=== PATIENT | male | born 1945 | race Caucasian/White ===

== ENCOUNTER 2021-10-15 15:01 | Inpatient (IN) | payer OTHER ==
[~2021-10-15] VITALS: Ht 182.9 cm; Wt 90.2 kg
[~2021-10-15 15:01] MED LIST: ALLO300 PO; AMLO10 PO; ATOR10 PO; Antivert25 MG PO; BASAGLAR K100 UNIT/1 SC; CIPR500 PO; CLIN150 PO; DULO60 PO; FLUO20 PO; HYDACE10B PO; INSN100I SUBQ; INSR10I SUBQ; LAMI150 PO; LEVFLO500 PO; LOSARTAN POTAS100 M1 PO; METO25ER PO; NOVOLOG FL100 UNIT/3 SC; OMEP20ER PO; PIRO20 PO; Percocet 5-3251 EACH PO; SIMV40 PO; Terazosin HCl10 MG PO; VISBIOME PROBIOTIC PO; Zofran8 MG PO
[2021-10-15 15:35] LABS: BASOPHILS ABSOLUTE AUTO 0.04 K/mm3 (0.00-0.23); BASOPHILS PERCENT AUTO 0 % (0-2); EOSINOPHILS ABSOLUTE AUTO 0.09 K/mm3 (0.00-0.68); EOSINOPHILS PERCENT AUTO 1 % (0-6); Hematocrit 35.6 % (37.0-53.0); Hemoglobin 11.5 g/dL (13.5-17.5); IMMATURE GRAN ABSOLUTE AUTO 0.04 K/mm3 (0.00-0.10); IMMATURE GRAN PERCENT AUTO 0 % (0-1); LYMPHOCYTES ABSOLUTE AUTO 0.95 K/mm3 (0.84-5.20); LYMPHOCYTES PERCENT AUTO 8 % (21-46); MONOCYTES ABSOLUTE AUTO 0.62 K/mm3 (0.16-1.47); MONOCYTES PERCENT AUTO 5 % (4-13); Mean Corpuscular HGB 33.8 pg (26.0-34.0); Mean Corpuscular HGB Conc 32.3 g/dL (31.5-36.5); Mean Corpuscular Volume 105 fL (80-100); Mean Platelet Volume 8.4 fL (9.1-12.4); NEUTROPHILS ABSOLUTE AUTO 10.41 K/mm3 (1.96-9.15); NEUTROPHILS PERCENT AUTO 86 % (41-73); Platelet Count 276 K/mm3 (150-400); RDW Coefficient Variation 16.7 % (11.7-14.2); RDW Standard Deviation 64.8 fL (35.1-46.3); White Blood Cell Count 12.15 K/mm3 (4.00-11.30)
[2021-10-15 15:54] LABS: Albumin, Blood 3.7 g/dL (3.4-5.0); Albumin/Globulin Ratio 1.1 (0.8-1.8); Bilirubin, Total 0.4 mg/dL (0.1-1.0); Calcium, Blood 8.6 mg/dL (8.5-10.1); Creatinine, Blood 4.13 mg/dL (0.60-1.20); Globulin, Blood 3.4 g/dL (2.2-4.0); Potassium, Blood 6.4 mmol/L (3.5-5.5); Total Protein, Blood 7.1 g/dL (6.4-8.2)
[2021-10-15 16:03] LABS: Prothrombin Time Results 10.5 Sec (9.7-11.5)
[2021-10-15 18:59] LABS: Bun/Creatinine Ratio 15.3 (12.0-20.0); Calcium, Blood 8.5 mg/dL (8.5-10.1); Creatinine, Blood 3.99 mg/dL (0.60-1.20); Potassium, Blood 6.4 mmol/L (3.5-5.5)
[2021-10-15] MEDS ORDERED: CARV25 PO (20:03)
[2021-10-15] MEDS ORDERED: HYDRA50 PO (20:04)
[2021-10-15] MEDS ORDERED: TAMS.4ER PO (20:05)
[2021-10-15] MEDS ORDERED: VITAMIN D325 MC3 PO (20:08)
[2021-10-15] MEDS ORDERED: Acerola C500 MG PO (20:09)
--- NOTE | 2021-10-15 21:52 | NUR ---
SPOKE TO DR. LI ABOUT PATIENT'S POTASSIUM LEVEL DECREASING FROM 6.4 TO 5.9 . NO NEW ORDERS AT THIS TIME.
[2021-10-16 03:01] LABS: Source, Urine Clean Catch
[2021-10-16 03:03] LABS: Bilirubin, Urine Neg (Neg); Blood, Urine Neg (Neg); Glucose Qualitative, Urine Neg (Neg); Ketones, Urine Neg (Neg); Leukocyte Esterase, Urine Neg (Neg); Nitrite, Urine Neg (Neg); Protein, Urine 4+ (Neg); Urobilinogen, Urine NORM (Normal)
[2021-10-16 03:07] LABS: Appearance, Urine Clear (Clear); Color, Urine Yellow (P-Yellow)
[2021-10-16 03:14] LABS: Amorphous Light (0-Heavy); Bacteria Not Seen /hpf; Hyaline Casts 0-2 /lpf (0-2); Mucus Light (0-Heavy); Red Blood Cells, Urine Not Seen /hpf (0-2); Squamous Epithelial Cells Not Seen /hpf (Few); White Blood Cells, Urine Not Seen /hpf (0-5)
[2021-10-16 04:47] LABS: BASOPHILS ABSOLUTE AUTO 0.04 K/mm3 (0.00-0.23); BASOPHILS PERCENT AUTO 1 % (0-2); EOSINOPHILS ABSOLUTE AUTO 0.13 K/mm3 (0.00-0.68); EOSINOPHILS PERCENT AUTO 2 % (0-6); Hematocrit 28.7 % (37.0-53.0); Hemoglobin 9.1 g/dL (13.5-17.5); IMMATURE GRAN ABSOLUTE AUTO 0.03 K/mm3 (0.00-0.10); IMMATURE GRAN PERCENT AUTO 0 % (0-1); LYMPHOCYTES ABSOLUTE AUTO 1.17 K/mm3 (0.84-5.20); LYMPHOCYTES PERCENT AUTO 13 % (21-46); MONOCYTES PERCENT AUTO 11 % (4-13); Mean Corpuscular HGB 33.6 pg (26.0-34.0); Mean Corpuscular HGB Conc 31.7 g/dL (31.5-36.5); Mean Corpuscular Volume 106 fL (80-100); Mean Platelet Volume 9.2 fL (9.1-12.4); NEUTROPHILS ABSOLUTE AUTO 6.49 K/mm3 (1.96-9.15); NEUTROPHILS PERCENT AUTO 73 % (41-73); Platelet Count 207 K/mm3 (150-400); RDW Coefficient Variation 16.6 % (11.7-14.2); RDW Standard Deviation 64.2 fL (35.1-46.3); Red Blood Cell Count 2.71 M/mm3 (4.30-5.90); White Blood Cell Count 8.86 K/mm3 (4.00-11.30)
--- NOTE | 2021-10-16 05:07 | NUR ---
PATIENT IS A TRASNFER FROM [facility] FOR ABD PAIN WITH N/V/D. HE HAS A RIGHT SIDED COLOSTOMY BAG. HAS HEMATOMAS ON BOTH SIDES TO INSIDE OF HIPS, WHICH HE STATES ARE FROM INSULIN INJECTIONS. POTASSIUM DWON FROM 6.4 TO 5.9, WHICH DR. CUETO IS AWARE OF. GUAIAC NEGATIVE. TOES AMPUTAED ON LEFT FOOT. RESTING COMFORTABLY IN BED.
[2021-10-16 05:22] LABS: Albumin, Blood 2.8 g/dL (3.4-5.0); Anion Gap 10 mmol/L (6-16); Blood Urea Nitrogen 62 mg/dL (8-24); Bun/Creatinine Ratio 14.6 (12.0-20.0); CO2, Blood 16 mmol/L (21-32); Calcium, Blood 8.1 mg/dL (8.5-10.1); Chloride, Blood 113 mmol/L (98-108); Creatinine, Blood 4.26 mg/dL (0.60-1.20); Glomerular Filtration Rate 14 (60-); Glucose, Blood 97 mg/dL (70-99); Magnesium, Blood 2.4 mg/dL (1.6-2.4); Potassium, Blood 4.7 mmol/L (3.5-5.5); Sodium, Blood 139 mmol/L (136-145)
[2021-10-16 05:32] LABS: Campylobacter Sp Not Detected (NOT DETECT)
[2021-10-16 05:33] LABS: Adenovirus F 40/41 Not Detected (NOT DETECT); Astrovirus Not Detected (NOT DETECT); Cryptosporidium Not Detected (NOT DETECT); Cyclospora Cayetanensis Not Detected (NOT DETECT); E. Coli O157 Not Detected (NOT DETECT); Entamoeba Histolytica Not Detected (NOT DETECT); Enteroaggregative E. coli-EAEC Not Detected (NOT DETECT); Enteropathogenic E. coli-EPEC Not Detected (NOT DETECT); Enterotoxigenic E. coli-ETEC Not Detected (NOT DETECT); Giardia Lamblia Not Detected (NOT DETECT); Norovirus GI/GII Not Detected (NOT DETECT); Plesiomonas Shigelloides Not Detected (NOT DETECT); Rotavirus A Not Detected (NOT DETECT); Salmonella Sp Not Detected (NOT DETECT); Sapovirus Not Detected (NOT DETECT); Shiga Toxin-prod E. coli-STEC Not Detected (NOT DETECT); Shigella/Enteroin E. coli-EIEC Not Detected (NOT DETECT); Vibrio Cholerae Not Detected (NOT DETECT); Vibrio Sp Not Detected (NOT DETECT); Yersinia Enterocolitica Not Detected (NOT DETECT)
--- NOTE | 2021-10-16 16:48 | NUR ---
DAY SHIFT SUMMARY 76 YR OLD MALE, TRANSFERED FROM [place] WITH [facility]. POSITIVE FOR C-DIFF. TOES TO LEFT FOOT HAVE BEEN AMPUTATED, RT COLOSTOMY BAG INTACT. PT IS ON RA AND CLEAR LIQUID DIET. DENIES SOB, CP OR PAIN AT THIS TIME. CALL LIGHT WITHIN REACH AND ABLE TO CALL APPROPRIATELY. NO OTHER ACUTE CHANGES THIS SHIFT.
--- NOTE | 2021-10-16 23:41 | NUR ---
ACCU CHECK 67, ORANGE JUICE AND APPLE JUICE GIVEN, REFUSED YOGURT. WILL RECHECK LATER
[2021-10-17 04:29] LABS: Hematocrit 26.7 % (37.0-53.0); Hemoglobin 8.6 g/dL (13.5-17.5); Mean Corpuscular HGB 32.8 pg (26.0-34.0); Mean Corpuscular HGB Conc 32.2 g/dL (31.5-36.5); Mean Corpuscular Volume 102 fL (80-100); Mean Platelet Volume 9.5 fL (9.1-12.4); Platelet Count 195 K/mm3 (150-400); RDW Coefficient Variation 16.1 % (11.7-14.2); RDW Standard Deviation 60.3 fL (35.1-46.3); Red Blood Cell Count 2.62 M/mm3 (4.30-5.90); White Blood Cell Count 6.37 K/mm3 (4.00-11.30)
--- NOTE | 2021-10-17 04:47 | NUR ---
PT RESTING IN BED. SR ON TELE. DAILY LABS COMPLETE, HBG 8.6. NO C/O ABD PAIN OR N/V/D. SODIUM BICARB STILL INFUSING. TOLERATING CL DIET. CALL LIGHT WITHIN REACH. CONTINUE TO MONITOR.
[2021-10-17 05:01] LABS: Albumin, Blood 2.7 g/dL (3.4-5.0); Anion Gap 8 mmol/L (6-16); Blood Urea Nitrogen 56 mg/dL (8-24); Bun/Creatinine Ratio 14.5 (12.0-20.0); CO2, Blood 24 mmol/L (21-32); Calcium, Blood 7.9 mg/dL (8.5-10.1); Chloride, Blood 109 mmol/L (98-108); Creatinine, Blood 3.86 mg/dL (0.60-1.20); Glomerular Filtration Rate 15 (60-); Glucose, Blood 60 mg/dL (70-99); Magnesium, Blood 2.3 mg/dL (1.6-2.4); Phosphorus, Blood 5.2 mg/dL (2.5-4.9); Potassium, Blood 4.1 mmol/L (3.5-5.5); Sodium, Blood 141 mmol/L (136-145)
--- NOTE | 2021-10-17 15:42 | NUR ---
SPOKE WITH DIRECTOR OF REHABILITATION AT 1107, PATIENT WAS RUNNING SINUS HARVEY 50.
--- NOTE | 2021-10-17 17:13 | NUR ---
PATIENT IS PLEASANT AND COOPERATIVE. THERAPY ASSESSED HIM. AMBULATES TO BATHROOM WITHOUT DIFFICULTY. NO C/O PAIN VOICED. TOLERATED DIET ADVANCED TO ADA. ACCUCHECK ELEVATED AND MEDICATED PER E-NOV. TELEMETRY INTACT RUNNING SINUS HARVEY. WILL CONTINUE TO MONITOR.
--- NOTE | 2021-10-17 22:53 | NUR ---
HS BLOOD GLUCOSE FINGER STICK WAS 485. 10 UNITS OF ORDERED LANTUS GIVEN. SPOKE TO HOSPITALIST, LOW DOSE SSI D/C'D AND MEDIUM DOSE SSI ORDERED. PER MEDIUM SCALE, 5 UNITS HUMALOG GIVEN. WILL RECHECK BLOOD GLUCOSE 2 HOURS AFTER ADMINISTRATION OF INSULIN. WILL CONTINUE TO MONITOR. PT STATED UNDERSTANDING OF PLAN.
--- NOTE | 2021-10-18 01:06 | NUR ---
LEFT MESSAGE FOR HOSPITALIST REGARDING BLOOD GLUCOSE RECHECK OF 467.
--- NOTE | 2021-10-18 02:36 | NUR ---
SPOKE WITH HOSPITALIST REGARDING BLOOD GLUCOSE. LANTUS 30 UNITS GIVEN. SCHEDULED LANTUS CHANGED TO 30 UNITS BID.
[2021-10-18 04:08] LABS: Hematocrit 26.3 % (37.0-53.0); Hemoglobin 8.7 g/dL (13.5-17.5)
[2021-10-18 04:27] LABS: Albumin, Blood 2.6 g/dL (3.4-5.0); Anion Gap 5 mmol/L (6-16); Blood Urea Nitrogen 57 mg/dL (8-24); Bun/Creatinine Ratio 15.8 (12.0-20.0); CO2, Blood 24 mmol/L (21-32); Calcium, Blood 7.7 mg/dL (8.5-10.1); Chloride, Blood 108 mmol/L (98-108); Creatinine, Blood 3.61 mg/dL (0.60-1.20); Glomerular Filtration Rate 17 (60-); Glucose, Blood 384 mg/dL (70-99); Phosphorus, Blood 3.9 mg/dL (2.5-4.9); Potassium, Blood 5.1 mmol/L (3.5-5.5); Sodium, Blood 137 mmol/L (136-145)
--- NOTE | 2021-10-18 06:25 | NUR ---
PT RESTING IN BED. BLOOD GLUCOSE WAS ELEVATED THIS SHIFT. SSI INCREASED TO MEDIUM SCALE. LANTUS INCREASED TO 30 UNITS BID. PT STATED HE HAS BEEN CONTROLLING HIS BLOOD SUGARS AT HOME WITH 55 UNITS OF 70/30 COMBO INSULIN BID. PT DENIES SYMPTOMS OF HYPERGLYCEMIA. TOLERATING DIET AND ACTIVITY. RECEIVED PAIN MEDICATION X1 THIS SHIFT. CONTINUE PLAN OF CARE.
--- NOTE | 2021-10-18 16:58 | NUR ---
NO ACUTE CHANGES AT THIS TIME. PT COOPERATIVE OF CARE AND INDEPENDENT IN ROOM.PT DENIES ANY PAIN AT THIS TIME AND HAS NOT HAD ANY LOOSE STOOL TODAY. PT HAS CALL LIGHT WITHIN REACH. WILL CONTINUE TO MONITOR.
--- NOTE | 2021-10-18 17:23 | NUR ---
PT HAD CBG OF 48. DR VEGA NOTIFIED AND CHANGES WERE MADE TO EMAR. WILL CONTINUE TO MONITOR.
--- NOTE | 2021-10-19 03:40 | NUR ---
SHIFT SUMMARY PATIENT HAD NO ACUTE CHANGES OBSERVED. AXOX 3 AND INDEPENDENT IN ROOM. CBG 115 UP FROM 48 AT DINNER PER DAY RN. EVENING LANTUS HELD. TELE DC'D PER ORDERS. PIV REMAINS INTACT. NS INFUSING AT 75 mL/HR. VSS/AFEBRILE. DENIES PAIN, SOB, AND N/V. COLOSTOMY SELF CARE. CALL LIGHT IN REACH. BED IN LOWEST POSITION. WILL CONTINUE TO MONITOR UNTIL DAY SHIFT NURSE ASSUMES CARE.
--- NOTE | 2021-10-19 05:43 | NUR ---
RAPID RESPONSE INITIATED FOR CBG 21 BY HOSPITALITY ASSOCIATE. PATIENT NON-REPONSIVE TO VERBAL COMMANDS AND STERNAL RUB. DIAPHORECTIC. DEXTROSE 50% GIVEN PER CHARGE 1/2 AND PETROLEUM SAMPLER REPORTS GIVE FULL DOSE. CBG 115 @ 20:22 AND PATIENT ALERT AND ORIENTED X 4 AND INDEPENDENT. FIFTEEN MINUTES AFTER DEXTROSE PATIENT AWAKE AND ABLE TO FOLLOW COMMANDS AND ANSWER BASIC QUESTIONS. PETROLEUM SAMPLER TESTED IF PATIENT ABLE TO SIP WATER BEFORE SUCCESFULLY GIVING ENSURE PRODUCT. CBG RECHECK 117 THIRTY MINUTES FROM DEXTROSE IV. HOSPITALIST DR LAWSON ORDERED IV GLUCAGON AND GIVEN PER EMAR. PATIENT AWAKE AND ORIENTED RESTING IN BED. NS INFUSING AT 75 mL/HR. WCTM.
[2021-10-19 07:06] LABS: Albumin, Blood 2.8 g/dL (3.4-5.0); Anion Gap 7 mmol/L (6-16); Blood Urea Nitrogen 47 mg/dL (8-24); Bun/Creatinine Ratio 15.4 (12.0-20.0); CO2, Blood 18 mmol/L (21-32); Calcium, Blood 8.1 mg/dL (8.5-10.1); Chloride, Blood 117 mmol/L (98-108); Creatinine, Blood 3.05 mg/dL (0.60-1.20); Glomerular Filtration Rate 20 (60-); Glucose, Blood 282 mg/dL (70-99); Magnesium, Blood 1.8 mg/dL (1.6-2.4); Phosphorus, Blood 3.9 mg/dL (2.5-4.9); Potassium, Blood 4.9 mmol/L (3.5-5.5); Sodium, Blood 142 mmol/L (136-145)
--- NOTE | 2021-10-19 17:20 | NUR ---
NO ACUTE CHANGES AT THIS TIME. PT AOX4 AND COOPERATIVE OF CARE. PT DID REPORT HE HAD DIARHEA AT VERY START OF SHIFT,BUT REPORT THIS HAS RESOLVE. PT HAS OSTOMY HE SELF MANAGES. PT HAS REPORTED ABD PAIN X2 TODAY AND WAS TREATED PER EMAR. PT INDEPENDENT IN ROOM NO DISTRESS NOTED WILL CONTINUE TO MONITOR.
--- NOTE | 2021-10-20 03:21 | NUR ---
SHIFT SUMMARY PATIENT HAD NO ACUTE CHANGES OBSERVED. AXOX 4 AND INDEPENDENT IN ROOM. PIVS REMAIN INTACT. NA BICARB INFUSING @75 mL/HR. CBG 210. COLOSTOMY SELF CARE. DENIES PAIN, SOB, AND N/V. COOPERATIVE WITH CARE. SLEPT MOST OF THE SHIFT. CALL LIGHT IN REACH. BED IN LOWEST POSITION. WILL CONTINUE TO MONITOR UNTIL DAY SHIFT NURSE ASSUMES CARE.
[2021-10-20 04:36] LABS: BASOPHILS ABSOLUTE AUTO 0.04 K/mm3 (0.00-0.23); BASOPHILS PERCENT AUTO 1 % (0-2); EOSINOPHILS ABSOLUTE AUTO 0.36 K/mm3 (0.00-0.68); EOSINOPHILS PERCENT AUTO 5 % (0-6); Hematocrit 26.4 % (37.0-53.0); Hemoglobin 8.4 g/dL (13.5-17.5); IMMATURE GRAN ABSOLUTE AUTO 0.02 K/mm3 (0.00-0.10); IMMATURE GRAN PERCENT AUTO 0 % (0-1); LYMPHOCYTES ABSOLUTE AUTO 1.02 K/mm3 (0.84-5.20); LYMPHOCYTES PERCENT AUTO 13 % (21-46); MONOCYTES ABSOLUTE AUTO 0.74 K/mm3 (0.16-1.47); MONOCYTES PERCENT AUTO 10 % (4-13); Mean Corpuscular HGB 33.2 pg (26.0-34.0); Mean Corpuscular HGB Conc 31.8 g/dL (31.5-36.5); Mean Corpuscular Volume 104 fL (80-100); Mean Platelet Volume 10.1 fL (9.1-12.4); NEUTROPHILS ABSOLUTE AUTO 5.63 K/mm3 (1.96-9.15); NEUTROPHILS PERCENT AUTO 72 % (41-73); Platelet Count 167 K/mm3 (150-400); RDW Coefficient Variation 15.9 % (11.7-14.2); RDW Standard Deviation 61.2 fL (35.1-46.3); Red Blood Cell Count 2.53 M/mm3 (4.30-5.90); White Blood Cell Count 7.81 K/mm3 (4.00-11.30)
[2021-10-20 04:57] LABS: Albumin, Blood 2.5 g/dL (3.4-5.0); Anion Gap 7 mmol/L (6-16); Blood Urea Nitrogen 48 mg/dL (8-24); Bun/Creatinine Ratio 16.4 (12.0-20.0); CO2, Blood 22 mmol/L (21-32); Calcium, Blood 7.8 mg/dL (8.5-10.1); Chloride, Blood 113 mmol/L (98-108); Creatinine, Blood 2.92 mg/dL (0.60-1.20); Glomerular Filtration Rate 21 (60-); Glucose, Blood 161 mg/dL (70-99); Phosphorus, Blood 3.6 mg/dL (2.5-4.9); Potassium, Blood 4.9 mmol/L (3.5-5.5); Sodium, Blood 142 mmol/L (136-145)
--- NOTE | 2021-10-20 17:07 | NUR ---
NO ACUTE CHANGES PT AOX4 AND COOPERATIVE OF CARE. PT DOING WELL AT THIS TIME AND IS LOOKING FORWARD TO DISCHARGING HOME. PT CALL APPROPRIATELY NO DISTRESS NOTED AT THIS TIME. PT TAKES CARE OF HIS OWN OSTOMY BAG AND DID NOT REPORT ANY DIARHEA TODAY. CALL LIGHT IS WITHIN REACH WILL CONTINUE TO MONITOR.
--- NOTE | 2021-10-21 04:39 | NUR ---
Pt is alert and oriented x4, ambulatory and independent. pt has a colostomy bag, site is clean dry and intact. no complains of pain. vital signs are wnl. blood sugar was elavated, treated with emar orders. educated pt about diabetic diet. no signs of respiratory distress. pt is now sleeping on bed in lowest position. call light within reach.
[2021-10-21 04:42] LABS: BASOPHILS ABSOLUTE AUTO 0.05 K/mm3 (0.00-0.23); BASOPHILS PERCENT AUTO 1 % (0-2); EOSINOPHILS ABSOLUTE AUTO 0.38 K/mm3 (0.00-0.68); EOSINOPHILS PERCENT AUTO 6 % (0-6); Hemoglobin 8.6 g/dL (13.5-17.5); IMMATURE GRAN ABSOLUTE AUTO 0.03 K/mm3 (0.00-0.10); IMMATURE GRAN PERCENT AUTO 0 % (0-1); LYMPHOCYTES ABSOLUTE AUTO 0.88 K/mm3 (0.84-5.20); LYMPHOCYTES PERCENT AUTO 13 % (21-46); MONOCYTES ABSOLUTE AUTO 0.64 K/mm3 (0.16-1.47); MONOCYTES PERCENT AUTO 10 % (4-13); Mean Corpuscular HGB 34.3 pg (26.0-34.0); Mean Corpuscular HGB Conc 33.1 g/dL (31.5-36.5); Mean Corpuscular Volume 104 fL (80-100); Mean Platelet Volume 10.1 fL (9.1-12.4); NEUTROPHILS ABSOLUTE AUTO 4.71 K/mm3 (1.96-9.15); NEUTROPHILS PERCENT AUTO 70 % (41-73); Platelet Count 152 K/mm3 (150-400); RDW Coefficient Variation 15.5 % (11.7-14.2); RDW Standard Deviation 58.5 fL (35.1-46.3); Red Blood Cell Count 2.51 M/mm3 (4.30-5.90); White Blood Cell Count 6.69 K/mm3 (4.00-11.30)
[2021-10-21 05:00] LABS: Bun/Creatinine Ratio 15.4 (12.0-20.0); Calcium, Blood 7.8 mg/dL (8.5-10.1); Creatinine, Blood 2.8 mg/dL (0.60-1.20)
[2021-10-21] MEDS ORDERED: ALLO100 PO (10:05)
[2021-10-21] MEDS ORDERED: THERA-D2000 UNIT PO (10:06)
[2021-10-21] MEDS ORDERED: CARDURA2 M1 PO (10:09)
[2021-10-21] MEDS ORDERED: HUMULIN 70100 UNIT/4 SC (10:10)
--- NOTE | 2021-10-21 12:16 | NUR ---
DISCHARGE SUMMARY PATIENT WAS READ DISCHARGE INFORMATION. PATIENT VERBALLY UNDERSTOOD AND AGREED WITH DISCHARGE INSTRUCTIONS. VITAL SIGNS REVIEWED. NO ACUTE INCIDENTS THIS SHIFT. PATIENT WAS WALKED DOWN TO [facility] WITHOUT INCIDENT.
== END 2021-10-21 12:08 | disposition home or self-care (01) | DRG 683 ==
LOC: ER 15:01 → MEDS 17:08
PROVIDERS: Emergency Medicine; Internal Medicine; Internal Medicine Nephrology; ADMIT Family Medicine
DX: N17.9 Acute kidney failure, unspecified (principal); E87.2 Acidosis; E87.1 Hypo-osmolality and hyponatremia; B18.1 Chronic viral hepatitis B without delta-agent; E87.5 Hyperkalemia; D72.829 Elevated white blood cell count, unspecified; E11.65 Type 2 diabetes mellitus with hyperglycemia; K52.9 Noninfective gastroenteritis and colitis, unspecified; N18.4 Chronic kidney disease, stage 4 (severe); E86.0 Dehydration; E86.9 Volume depletion, unspecified; I12.9 Hypertensive chronic kidney disease with stage 1 through stage 4 chronic kidney disease, or unspecified chronic kidney disease; E11.22 Type 2 diabetes mellitus with diabetic chronic kidney disease; K21.9 Gastro-esophageal reflux disease without esophagitis; D63.1 Anemia in chronic kidney disease; F41.9 Anxiety disorder, unspecified; M10.9 Gout, unspecified; N40.0 Benign prostatic hyperplasia without lower urinary tract symptoms; E78.5 Hyperlipidemia, unspecified; F32.A Depression, unspecified; Z90.49 Acquired absence of other specified parts of digestive tract; Z88.8 Allergy status to other drugs, medicaments and biological substances; Z79.4 Long term (current) use of insulin; Z79.899 Other long term (current) drug therapy; Z93.2 Ileostomy status
CPT/HCPCS: 0097U; 36415; 74176; 80048; 80053; 80069; 81001; 82272; 82607; 82728; 82746; 82947; 83540; 83550; 83690; 83735; 84132; 85014; 85018; 85025; 85027; 85610; 87086; 87324; 93005; 93010; 96365; 96375; 97161; 97165; 97530; 99285-25; A9270; C9113; J0360; J0610; J0881; J1610; J1815; J2405; J2916; J3010; J7030; J7070; J7120

== ENCOUNTER 2021-10-31 19:35 | Inpatient (IN) | payer OTHER ==
[~2021-10-31] VITALS: Ht 177.8 cm; Wt 97.0 kg
[~2021-10-31 19:35] MED LIST changes: +ALLO100 PO; +Acerola C500 MG PO; +CARDURA2 M1 PO; +CARV25 PO; +HUMULIN 70100 UNIT/4 SC; +HYDRA50 PO; +TAMS.4ER PO; +THERA-D2000 UNIT PO; +VITAMIN D325 MC3 PO
[2021-10-31 22:04] LABS: BASOPHILS ABSOLUTE AUTO 0.04 K/mm3 (0.00-0.23); BASOPHILS PERCENT AUTO 0 % (0-2); EOSINOPHILS ABSOLUTE AUTO 0.31 K/mm3 (0.00-0.68); EOSINOPHILS PERCENT AUTO 4 % (0-6); Hematocrit 28.6 % (37.0-53.0); Hemoglobin 9.1 g/dL (13.5-17.5); IMMATURE GRAN ABSOLUTE AUTO 0.04 K/mm3 (0.00-0.10); IMMATURE GRAN PERCENT AUTO 0 % (0-1); LYMPHOCYTES ABSOLUTE AUTO 0.81 K/mm3 (0.84-5.20); LYMPHOCYTES PERCENT AUTO 9 % (21-46); MONOCYTES ABSOLUTE AUTO 0.71 K/mm3 (0.16-1.47); MONOCYTES PERCENT AUTO 8 % (4-13); Mean Corpuscular HGB 34.3 pg (26.0-34.0); Mean Corpuscular HGB Conc 31.8 g/dL (31.5-36.5); Mean Corpuscular Volume 108 fL (80-100); Mean Platelet Volume 9.9 fL (9.1-12.4); NEUTROPHILS PERCENT AUTO 79 % (41-73); Platelet Count 222 K/mm3 (150-400); RDW Coefficient Variation 15.8 % (11.7-14.2); Red Blood Cell Count 2.65 M/mm3 (4.30-5.90); White Blood Cell Count 8.91 K/mm3 (4.00-11.30)
[2021-10-31 22:05] LABS: Calcium, Ionized (POC) 1.28 mmol/L (1.10-1.46); Chloride (POC) 112 mmol/L (98-108); Creatinine (POC) 4.6 mg/dL (0.8-1.3); Glucose (ISTAT POC) 100 mg/dL (70-99); Hemoglobin (POC) 9.2 g/dL (13.5-17.5); Sodium (POC) 135 mmol/L (135-148); Total CO2 (POC) 15 mmol/L (21-32)
[2021-10-31 22:19] LABS: Albumin/Globulin Ratio 1.1 (0.8-1.8); Bilirubin, Direct 0.1 mg/dL (0.0-0.3); Bilirubin, Indirect 0.1 mg/dL (0.1-0.7); Bilirubin, Total 0.2 mg/dL (0.1-1.0); Bun/Creatinine Ratio 21.1 (12.0-20.0); Creatinine, Blood 4.22 mg/dL (0.60-1.20); Globulin, Blood 2.8 g/dL (2.2-4.0); Phosphorus, Blood 6.1 mg/dL (2.5-4.9); Total Protein, Blood 5.8 g/dL (6.4-8.2)
[2021-10-31 22:20] LABS: Potassium, Blood 6.3 mmol/L (3.5-5.5)
[2021-10-31] MEDS ORDERED: ALBU90OI INH (22:35)
[2021-10-31] MEDS ORDERED: DULO30 PO (22:37)
[2021-10-31] MEDS ORDERED: LOSA25 PO (22:39)
[2021-10-31] MEDS ORDERED: Flomax0.4 MG PO (22:40)
[2021-10-31] MEDS ORDERED: SODBIC650 PO (22:40)
[2021-11-01 01:09] LABS: Source, Urine Clean Catch
[2021-11-01 01:14] LABS: Bilirubin, Urine Neg (Neg); Blood, Urine Neg (Neg); Glucose Qualitative, Urine Neg (Neg); Ketones, Urine Neg (Neg); Leukocyte Esterase, Urine Neg (Neg); Nitrite, Urine Neg (Neg); Protein, Urine 4+ (Neg); Specific Gravity, Urine 1.015 (1.003-1.022); Urobilinogen, Urine NORM (Normal)
[2021-11-01 01:15] LABS: Appearance, Urine Clear (Clear); Color, Urine Yellow (P-Yellow)
[2021-11-01 01:20] LABS: Amorphous Light (0-Heavy); Bacteria Rare /hpf; Red Blood Cells, Urine Not Seen /hpf (0-2); Squamous Epithelial Cells Rare /hpf (Few); White Blood Cells, Urine 0-2 /hpf (0-5)
[2021-11-01 03:01] LABS: Bicarbonate Venous 14.7 mmol/L (24.0-30.0); PO2 Venous 73.5 mmHg (38-42); pH Blood Venous 7.23 (7.34-7.37)
[2021-11-01 03:02] LABS: Base Excess Venous -13.4 mmol/L
[2021-11-01 04:03] LABS: Albumin, Blood 2.7 g/dL (3.4-5.0); Anion Gap 9 mmol/L (6-16); Blood Urea Nitrogen 86 mg/dL (8-24); Bun/Creatinine Ratio 20.2 (12.0-20.0); CO2, Blood 15 mmol/L (21-32); Calcium, Blood 8.1 mg/dL (8.5-10.1); Chloride, Blood 116 mmol/L (98-108); Creatinine, Blood 4.25 mg/dL (0.60-1.20); Glomerular Filtration Rate 14 (60-); Glucose, Blood 54 mg/dL (70-99); Phosphorus, Blood 6.1 mg/dL (2.5-4.9); Potassium, Blood 5.3 mmol/L (3.5-5.5); Sodium, Blood 140 mmol/L (136-145)
--- NOTE | 2021-11-01 07:16 | NUR ---
Admission complete. Ileostomy bag and appliance changed. 1/2 NS with bicarb infusing. 2nd IV started for incompatible meds. Dr Welch called and notified of consult and lab results.
--- NOTE | 2021-11-01 07:20 | NUR ---
ASSUME CARE: I have assumed care of patient.
[2021-11-01 09:12] LABS: Bun/Creatinine Ratio 21.6 (12.0-20.0); Calcium, Blood 8.1 mg/dL (8.5-10.1); Creatinine, Blood 4.07 mg/dL (0.60-1.20); Potassium, Blood 5.5 mmol/L (3.5-5.5)
--- NOTE | 2021-11-01 11:36 | NUR ---
PROVIDER NOTIFICATION: Dr Covarrubias called and notified that pt is complaining of 8/10 lower abdominal and low back pain. Pt reports this is the same pain that brought him to the hospital initially.
[2021-11-01 13:23] LABS: Bun/Creatinine Ratio 19.4 (12.0-20.0); Calcium, Blood 7.8 mg/dL (8.5-10.1); Creatinine, Blood 4.07 mg/dL (0.60-1.20); Potassium, Blood 5.8 mmol/L (3.5-5.5)
--- NOTE | 2021-11-01 17:35 | NUR ---
UPDATE: Dr. Covarrubias called and notified that pts pain has not improved; pt requesting IV fentanyl since that is what worked for him last time he was hospitalized with similar pain.
--- NOTE | 2021-11-01 21:00 | NUR ---
ASSUMED CARE RECEIVED REPORT FROM JAISON ROJAS, AT 1900. PT ALERT AND ORIENTED X4, PLEASANT AND ABLE TO EXPRESS NEEDS WELL, AND FOLLOWS COMMANDS. HE REPOSITIONS SELF IN BED FREQUENTLY AND INDEPENDENTLY. ON ROOM AIR, SPO2 >95%, LUNGS CLEAR. HR IS SINUS RHYTHM TO SINUS HARVEY, 50-6-'S. BP HYPERTENSIVE WITH SBP IN 160'S, MEDICATED PER EMAR. PT HAS WELL ESTABLISHED ILEOSTOMY IN [facility], DENIES NAUSEA OR VOMITING. USES URINAL NEEDED IN BED. SKIN IS REDDENED AROUND STOMA, BARRIER TAPE IN PLACE. 20G IV IN LEFT WRIST, INFUSING WITH NS AT 125ML/HR. ORDERS REVIEWED, WILL TREAT PRESCRIBED.
[2021-11-02 03:49] LABS: BASOPHILS ABSOLUTE AUTO 0.03 K/mm3 (0.00-0.23); BASOPHILS PERCENT AUTO 0 % (0-2); EOSINOPHILS ABSOLUTE AUTO 0.25 K/mm3 (0.00-0.68); EOSINOPHILS PERCENT AUTO 4 % (0-6); Hemoglobin 8.2 g/dL (13.5-17.5); IMMATURE GRAN ABSOLUTE AUTO 0.02 K/mm3 (0.00-0.10); IMMATURE GRAN PERCENT AUTO 0 % (0-1); LYMPHOCYTES ABSOLUTE AUTO 0.74 K/mm3 (0.84-5.20); LYMPHOCYTES PERCENT AUTO 11 % (21-46); MONOCYTES ABSOLUTE AUTO 0.64 K/mm3 (0.16-1.47); MONOCYTES PERCENT AUTO 9 % (4-13); Mean Corpuscular HGB 34.3 pg (26.0-34.0); Mean Corpuscular HGB Conc 31.5 g/dL (31.5-36.5); Mean Corpuscular Volume 109 fL (80-100); Mean Platelet Volume 9.9 fL (9.1-12.4); NEUTROPHILS ABSOLUTE AUTO 5.37 K/mm3 (1.96-9.15); NEUTROPHILS PERCENT AUTO 76 % (41-73); Platelet Count 170 K/mm3 (150-400); RDW Coefficient Variation 15.9 % (11.7-14.2); RDW Standard Deviation 63.8 fL (35.1-46.3); Red Blood Cell Count 2.39 M/mm3 (4.30-5.90); White Blood Cell Count 7.05 K/mm3 (4.00-11.30)
[2021-11-02 04:07] LABS: Albumin, Blood 2.4 g/dL (3.4-5.0); Anion Gap 8 mmol/L (6-16); Blood Urea Nitrogen 82 mg/dL (8-24); CO2, Blood 16 mmol/L (21-32); Calcium, Blood 7.7 mg/dL (8.5-10.1); Chloride, Blood 115 mmol/L (98-108); Glomerular Filtration Rate 14 (60-); Glucose, Blood 250 mg/dL (70-99); Phosphorus, Blood 6.2 mg/dL (2.5-4.9); Potassium, Blood 5.4 mmol/L (3.5-5.5); Sodium, Blood 139 mmol/L (136-145)
--- NOTE | 2021-11-02 06:15 | NUR ---
PT SLEPT WELL THROUGHOUT MOST OF THE NIGHT. VITAL SIGNS STABLE, REMAINS ON RA. HE USED THE URINAL WITHOUT ASSISTANCE NEEDED. IV FLUIDS X2 BAGS ARE FINISHED, 20G IV IN LEFT WRIST SALINE LOCKED. ILEOSTOMY BAG CHANGED OUT D/T LEAK, BUT OTHERWISE SHIFT WAS UNEVENTFUL. WILL REPORT TO ONCOMING SHIFT.
--- NOTE | 2021-11-02 07:30 | NUR ---
ASSUMED CARE: PT RESTING IN BED AT THIS TIME. NSR/HARVEY AT THIS TIME. RA, NO ACUTE NEEDS OR CONCERNS AT THIS TIME.
--- NOTE | 2021-11-02 17:52 | NUR ---
CALL TO DR Greer REGARDING PT'S CBGS AND GLUCOSE COVERAGE. DR TO REVIEW PT'S HOME MEDS FOR NEW ORDERS. DINNER BEING HELD AT THIS TIME. GRE TUTOR AWARE CALL TO DR CUETO TO CONFIRM THAT FLUIDS ARE TO BE CONTINOUS. NO ACUTE NEEDS OR CONCERNS AT THIS TIME.
--- NOTE | 2021-11-02 19:49 | NUR ---
ASSUMED CARE RECEIVED REPORT FROM JAISON ORTIZ AT 1900. PT CURRENTLY WATCHING TV IN BED, A/O X4. COMMUNICATES NEEDS WELL, USES CALL LIGHT APPROPRIATELY, FOLLOWS COMMANDS. ON RA, VSS, HOWEVER BP IS HYPERTENSIVE 169/90, WILL MEDICATE PER EMAR. HR SINUS RHYTHM TO SINUS HARVEY, RATE 50-60'S. ILEOSTOMY PRESENT IN RLQ, PT HAS LONG STANDING HX SINCE 1984. 20G IV IN LEFT AC, INFUSING WITH SODIUM BICARB AT 100ML/HR. UNDERGOING 24 HOUR URINE COLLECTION UNTIL 11/03 AT 10AM. ORDERS REVIEWED, WILL TREAT PRESCRIBED.
[2021-11-03 03:30] LABS: Hematocrit 25.8 % (37.0-53.0); Hemoglobin 8.5 g/dL (13.5-17.5)
[2021-11-03 03:53] LABS: Albumin, Blood 2.6 g/dL (3.4-5.0); Anion Gap 7 mmol/L (6-16); Blood Urea Nitrogen 70 mg/dL (8-24); Bun/Creatinine Ratio 18.7 (12.0-20.0); CO2, Blood 20 mmol/L (21-32); CPK Creatine Kinase 45 U/L (39-308); Calcium, Blood 7.8 mg/dL (8.5-10.1); Chloride, Blood 114 mmol/L (98-108); Creatinine, Blood 3.75 mg/dL (0.60-1.20); Glomerular Filtration Rate 16 (60-); Glucose, Blood 277 mg/dL (70-99); Phosphorus, Blood 4.8 mg/dL (2.5-4.9); Potassium, Blood 4.9 mmol/L (3.5-5.5); Sodium, Blood 141 mmol/L (136-145); Uric Acid, Blood 6.5 mg/dL (3.5-7.2)
--- NOTE | 2021-11-03 06:12 | NUR ---
PT SLEPT OKAY DURING SHIFT. HE HAS DEVELOPED A COUGH AND SOME WHEEZING, BUT STATES THIS WAS PRESENT DURING ADMISSION AND DECLINED USE OF INHALER. VSS, USING CALL LIGHT AFTER URINAL WE ARE COLLECTING 24 HOUR URINE. SODIUM BICARB GTT CONTINUES AT 100ML/HR. WILL REPORT TO ONCOMING SHIFT.
--- NOTE | 2021-11-03 06:30 | NUR ---
DR. CUETO TO BEDSIDE THIS AM. SODIUM BICARB GTT RATE DECREASED TO 75ML/HR AND IS TO BE CONTINUOUS.
--- NOTE | 2021-11-03 07:34 | NUR ---
ASSUMED CARE: PT RESTING IN BED, ON ROOM AIR, NSR TO SINUS HARVEY IN 50S. [address] UNTIL 10AM. SODIUM BICARB AT 75/HR THIS AM PER ORDERS. NO ACUTE NEEDS AT THIS TIME.
[2021-11-03 12:24] LABS: Protein, Urine Quantitative 240.3 mg/dL (0.0-11.9)
--- NOTE | 2021-11-03 13:13 | NUR ---
PT STARTED C/O ABDOMINAL PAIN IN LLQ, STATED IT WAS SHARP AND THAT HE HAS STARTED TO HAVE LIQUID DIARRHEA AFTER EATING. PT STATES THIS IS THE SAME PROBLEM THAT BROUGHT HIM IN AND THE PROBLEM IS JUST BAD IT WAS BEFORE. CALL TO DR Greer WHO STATES TO GO AHEAD AND GIVE FENTANYL FOR PAIN AND THAT SHE WOULD DISCUSS FURTHER WITH HER ATTENDING.
[2021-11-03 15:29] LABS: Bun/Creatinine Ratio 17.9 (12.0-20.0); Calcium, Blood 8.1 mg/dL (8.5-10.1); Creatinine, Blood 3.52 mg/dL (0.60-1.20); Potassium, Blood 4.5 mmol/L (3.5-5.5)
--- NOTE | 2021-11-03 16:06 | NUR ---
CALL TO DR Greer TO MAKE HER AWARE THAT PT IS STILL HAVING ABDOMINAL PAIN AND STATES THAT FENTANYL HELPED BUT NOT FOR LONG. PT ALSO HAS ELEVATED BLOOD PRESSURE. STATED TO INCREASE FREQUENCY OF FENTANYL. NO MED FOR HYPERTENSION AT THIS TIME. PT AWARE THAT DISCHARGE HELD DUE TO WAITING FOR GI PANEL RESULTS.
[2021-11-03 16:29] LABS: Adenovirus F 40/41 Not Detected (NOT DETECT); Astrovirus Not Detected (NOT DETECT); Campylobacter Sp Not Detected (NOT DETECT); Cryptosporidium Not Detected (NOT DETECT); Cyclospora Cayetanensis Not Detected (NOT DETECT); E. Coli O157 Not Detected (NOT DETECT); Entamoeba Histolytica Not Detected (NOT DETECT); Enteroaggregative E. coli-EAEC Not Detected (NOT DETECT); Enteropathogenic E. coli-EPEC Not Detected (NOT DETECT); Enterotoxigenic E. coli-ETEC Not Detected (NOT DETECT); Giardia Lamblia Not Detected (NOT DETECT); Norovirus GI/GII Not Detected (NOT DETECT); Plesiomonas Shigelloides Not Detected (NOT DETECT); Rotavirus A Not Detected (NOT DETECT); Salmonella Sp Not Detected (NOT DETECT); Sapovirus Not Detected (NOT DETECT); Shiga Toxin-prod E. coli-STEC Not Detected (NOT DETECT); Shigella/Enteroin E. coli-EIEC Not Detected (NOT DETECT); Vibrio Cholerae Not Detected (NOT DETECT); Vibrio Sp Not Detected (NOT DETECT); Yersinia Enterocolitica Not Detected (NOT DETECT)
--- NOTE | 2021-11-03 18:19 | NUR ---
SHIFT SUMMARY: PT RESTING IN BED, AMBULATED IN HALLS TODAY, GOT UP TO SHOWER WITH WALKER. MEDICATED X1 FOR HYPERTENSION. STATED THAT HE IS HAVING ABDOMINAL PAIN AND DIARRHEA AFTER EATING. MEDICATED X3 FOR PAIN, GOT ORAL MEDICATION FROM DR Greer. STOOL SAMPLE SENT FOR GI PANEL. NO POSITIVE RESULT. POSSIBLE DC TOMORROW. NO ACUTE NEEDS AT THIS TIME.
--- NOTE | 2021-11-03 19:10 | NUR ---
ASSUMED CARE OF PT, BEDSIDE REPORT RECEIVED. PT IS RESTING QUIETLY RECLINING IN BED AND WATCHING TV, DENIES NEEDS AT THIS TIME, CALL LIGHT IS IN REACH, PT WILL CALL IF REQUIRES ASSISTANCE WITH ANYTHING PRIOR TO HS ASSESSMENT.
[2021-11-04 03:40] LABS: Hemoglobin 8.4 g/dL (13.5-17.5)
[2021-11-04 04:06] LABS: Alanine Aminotransfer (ALT/SGP 20 U/L (12-78); Albumin, Blood 2.5 g/dL (3.4-5.0); Alk Phos 73 U/L (50-136); Anion Gap 5 mmol/L (6-16); Aspartate Aminotrans (AST/SGOT 9 U/L (12-37); Bilirubin, Total 0.6 mg/dL (0.1-1.0); Blood Urea Nitrogen 58 mg/dL (8-24); Bun/Creatinine Ratio 17.6 (12.0-20.0); CO2, Blood 26 mmol/L (21-32); Chloride, Blood 114 mmol/L (98-108); Creatinine, Blood 3.29 mg/dL (0.60-1.20); Globulin, Blood 2.5 g/dL (2.2-4.0); Glomerular Filtration Rate 18 (60-); Glucose, Blood 149 mg/dL (70-99); Phosphorus, Blood 4.2 mg/dL (2.5-4.9); Potassium, Blood 4.1 mmol/L (3.5-5.5); Sodium, Blood 145 mmol/L (136-145)
--- NOTE | 2021-11-04 07:07 | NUR ---
PT RESTS QUIETLY THROUGHOUT SHIFT, STATES THAT ABD PAIN IS GREATLY IMPROVED THIS AM. CONTINUES ON BICARB GTT, CONTINUES TO TURN HIMSELF IND IN BED. DENIES N/V. NO ACUTE CHANGES.
--- NOTE | 2021-11-04 09:46 | NUR ---
AM NOTE.... ASSUMED CARE OF PT AT 0700, THE PT IS A&Ox4 AND IND/SBA IN THE ROOM. THE PLAN IS FOR THE PT TO D/C HOME TODAY. THE PT'S VS ARE STABLE EXCEPT HE IS HYPERTENSIVE WITH SBPs IN THE 160'S, THE PT WAS MEDICATED PER EMAR FOR THIS. THE PT IS ON RA WITH O2 SATS >95% L/S CLEAR T/O DIM IN THE BASES. BT PRESENT AND HYPERACTIVE, ABD IS A LITTLE TENDER TO PALPATION BUT PT STATES IT HAS BEEN THIS WAY "FOR A BIT" THE PT'S ILLEOSTOMY SITE IS C/D/I WITH LOOSE BROWN STOOLS. CALL LIGHT IN [facility] ONTINUE TO MONITOR
--- NOTE | 2021-11-04 12:52 | NUR ---
PT D/C HOME.... PT D/C HOME, ALL OF PT'S BELONGINGS PACKED AND SENT WITH THE PT. THE PT'S IV WAS REMOVED WNL. D/C EDUCATION PROVIDED BY THIS RN. PT WAS ESCORTED OUT OF THE FACILITY VIA W/C.
[2021-11-05 15:11] LABS: A/G RATIO 1.4 (0.7-1.7); ALBUMIN 2.7 g/dL (2.9-4.4); ALPHA-1-GLOBULIN 0.2 g/dL (0.0-0.4); ALPHA-2-GLOBULIN 0.5 g/dL (0.4-1.0); BETA GLOBULIN 0.6 g/dL (0.7-1.3); GAMMA GLOBULIN 0.6 g/dL (0.4-1.8); IMMUNOGLOBULIN A, QN, SERUM 673 mg/dL (61-437); IMMUNOGLOBULIN G, QN, SERUM 478 mg/dL (603-1613); IMMUNOGLOBULIN M, QN, SERUM 87 mg/dL (15-143); M-SPIKE Not Observed g/dL (Not Observed); PROTEIN, TOTAL, SERUM 4.7 g/dL (6.0-8.5)
[2021-11-06 09:11] LABS: ANTIGLOMERULAR BM AB 3 units (0-20)
[2021-11-06 14:12] LABS: ANA DIRECT Positive (Negative); ANTI-CENTROMERE B ANTIBODIES <0.2 AI (0.0-0.9); ANTI-DNA (DS) AB QN 4 IU/mL (0-9); ANTI-JO-1 <0.2 AI (0.0-0.9); ANTICHROMATIN ANTIBODIES <0.2 AI (0.0-0.9); ANTIMYELOPEROXIDASE (MPO) ABS <9.0 U/mL (0.0-9.0); ANTIPROTEINASE 3 (PR-3) ABS <3.5 U/mL (0.0-3.5); ANTIRIBOSOMAL P ANTIBODIES <0.2 AI (0.0-0.9); ANTISCLERODERMA-70 ANTIBODIES 1.3 AI (0.0-0.9); ATYPICAL PANCA <1:20 titer (Neg:<1:20); CYTOPLASMIC (C-ANCA) <1:20 titer (Neg:<1:20); PERINUCLEAR (P-ANCA) <1:20 titer (Neg:<1:20); RNP ANTIBODIES <0.2 AI (0.0-0.9); SJOGREN'S ANTI-SS-A <0.2 AI (0.0-0.9); SJOGREN'S ANTI-SS-B <0.2 AI (0.0-0.9); SMITH ANTIBODIES <0.2 AI (0.0-0.9); SMITH/RNP ANTIBODIES <0.2 AI (0.0-0.9)
== END 2021-11-04 13:05 | disposition home or self-care (01) | DRG 683 ==
LOC: ER 19:35 → ICUW 19:36
PROVIDERS: Emergency Medicine; Family Medicine; Internal Medicine Nephrology; Student in an Organized Health Care Education/Training Program; ADMIT Family Medicine
DX: N17.9 Acute kidney failure, unspecified (principal); E87.2 Acidosis; K51.90 Ulcerative colitis, unspecified, without complications; E87.5 Hyperkalemia; B19.20 Unspecified viral hepatitis C without hepatic coma; I12.9 Hypertensive chronic kidney disease with stage 1 through stage 4 chronic kidney disease, or unspecified chronic kidney disease; M10.9 Gout, unspecified; D63.1 Anemia in chronic kidney disease; N40.0 Benign prostatic hyperplasia without lower urinary tract symptoms; M45.9 Ankylosing spondylitis of unspecified sites in spine; N18.30 Chronic kidney disease, stage 3 unspecified; E78.5 Hyperlipidemia, unspecified; K21.9 Gastro-esophageal reflux disease without esophagitis; E11.65 Type 2 diabetes mellitus with hyperglycemia; E86.0 Dehydration; F41.8 Other specified anxiety disorders; G47.33 Obstructive sleep apnea (adult) (pediatric); Z99.89 Dependence on other enabling machines and devices; Z86.718 Personal history of other venous thrombosis and embolism; Z93.2 Ileostomy status; Z88.8 Allergy status to other drugs, medicaments and biological substances; Z79.4 Long term (current) use of insulin; Z79.899 Other long term (current) drug therapy
CPT/HCPCS: 0097U; 36415; 74176; 80047; 80048; 80053; 80069; 81001; 82248; 82550; 82784; 82803; 82947; 83516; 83520; 83735; 83880; 84100; 84156; 84165; 84550; 85014; 85018; 85025; 86037; 86038; 86334; 93005; 93010; 96374; 97110; 97162; 97165; 97530; 99285-25; A9270; C9113; G0378; J0360; J0610; J0881; J1815; J3010; J7030; J7070

== ENCOUNTER 2021-12-27 16:04 | Inpatient (IN) | payer OTHER ==
[~2021-12-27] VITALS: Ht 177.8 cm; Wt 95.9 kg
[~2021-12-27 16:04] MED LIST changes: +ACET325 PO; +ALBU90OI INH; +DULO30 PO; +Flomax0.4 MG PO; +LOSA25 PO; +METO10 PO; +SODBIC650 PO
[2021-12-27 16:51] LABS: BASOPHILS ABSOLUTE AUTO 0.02 K/mm3 (0.00-0.23); BASOPHILS PERCENT AUTO 0 % (0-2); EOSINOPHILS ABSOLUTE AUTO 0.01 K/mm3 (0.00-0.68); EOSINOPHILS PERCENT AUTO 0 % (0-6); Hemoglobin 10.5 g/dL (13.5-17.5); IMMATURE GRAN ABSOLUTE AUTO 0.03 K/mm3 (0.00-0.10); IMMATURE GRAN PERCENT AUTO 0 % (0-1); LYMPHOCYTES ABSOLUTE AUTO 0.42 K/mm3 (0.84-5.20); LYMPHOCYTES PERCENT AUTO 5 % (21-46); MONOCYTES ABSOLUTE AUTO 0.25 K/mm3 (0.16-1.47); MONOCYTES PERCENT AUTO 3 % (4-13); Mean Corpuscular HGB 31.4 pg (26.0-34.0); Mean Corpuscular Volume 105 fL (80-100); Mean Platelet Volume 10.7 fL (9.1-12.4); NEUTROPHILS ABSOLUTE AUTO 8.14 K/mm3 (1.96-9.15); NEUTROPHILS PERCENT AUTO 92 % (41-73); Platelet Count 177 K/mm3 (150-400); Red Blood Cell Count 3.34 M/mm3 (4.30-5.90); White Blood Cell Count 8.87 K/mm3 (4.00-11.30)
[2021-12-27 17:22] LABS: Albumin, Blood 3.2 g/dL (3.4-5.0); Bilirubin, Total 0.4 mg/dL (0.1-1.0); Bun/Creatinine Ratio 19.2 (12.0-20.0); Calcium, Blood 8.5 mg/dL (8.5-10.1); Creatinine, Blood 6.29 mg/dL (0.60-1.20); Globulin, Blood 3.1 g/dL (2.2-4.0); Potassium, Blood 8.1 mmol/L (3.5-5.5); Total Protein, Blood 6.3 g/dL (6.4-8.2)
[2021-12-27 20:16] LABS: Base Excess Venous -22.7 mmol/L; Bicarbonate Venous 9.1 mmol/L (24.0-30.0); PCO2 Venous 26.3 mmHg (38-42); PO2 Venous 178 mmHg (38-42); pH Blood Venous 7.07 (7.34-7.37)
[2021-12-27 20:19] LABS: Anion Gap 11 mmol/L (6-16); Blood Urea Nitrogen 117 mg/dL (8-24); Bun/Creatinine Ratio 19.6 (12.0-20.0); CO2, Blood 7 mmol/L (21-32); Calcium, Blood 8.2 mg/dL (8.5-10.1); Chloride, Blood 115 mmol/L (98-108); Creatinine, Blood 5.96 mg/dL (0.60-1.20); Glomerular Filtration Rate 9 (60-); Glucose, Blood 311 mg/dL (70-99); Phosphorus, Blood 7.8 mg/dL (2.5-4.9); Sodium, Blood 133 mmol/L (136-145)
[2021-12-27 22:36] LABS: Bun/Creatinine Ratio 19.3 (12.0-20.0); Calcium, Blood 8.6 mg/dL (8.5-10.1); Creatinine, Blood 5.96 mg/dL (0.60-1.20); Potassium, Blood 6.2 mmol/L (3.5-5.5)
[2021-12-28 01:26] LABS: Adenovirus F 40/41 Not Detected (NOT DETECT); Astrovirus Not Detected (NOT DETECT); Campylobacter Sp Not Detected (NOT DETECT); Cryptosporidium Not Detected (NOT DETECT); Cyclospora Cayetanensis Not Detected (NOT DETECT); E. Coli O157 Not Detected (NOT DETECT); Entamoeba Histolytica Not Detected (NOT DETECT); Enteroaggregative E. coli-EAEC Not Detected (NOT DETECT); Enteropathogenic E. coli-EPEC Not Detected (NOT DETECT); Enterotoxigenic E. coli-ETEC Not Detected (NOT DETECT); Giardia Lamblia Not Detected (NOT DETECT); Norovirus GI/GII Not Detected (NOT DETECT); Plesiomonas Shigelloides Not Detected (NOT DETECT); Rotavirus A Not Detected (NOT DETECT); Salmonella Sp Not Detected (NOT DETECT); Sapovirus Not Detected (NOT DETECT); Shiga Toxin-prod E. coli-STEC Not Detected (NOT DETECT); Shigella/Enteroin E. coli-EIEC Not Detected (NOT DETECT); Vibrio Cholerae Not Detected (NOT DETECT); Vibrio Sp Not Detected (NOT DETECT); Yersinia Enterocolitica Not Detected (NOT DETECT)
[2021-12-28 04:27] LABS: BASOPHILS ABSOLUTE AUTO 0.04 K/mm3 (0.00-0.23); BASOPHILS PERCENT AUTO 1 % (0-2); EOSINOPHILS ABSOLUTE AUTO 0.03 K/mm3 (0.00-0.68); EOSINOPHILS PERCENT AUTO 0 % (0-6); Hematocrit 30.3 % (37.0-53.0); Hemoglobin 9.4 g/dL (13.5-17.5); IMMATURE GRAN ABSOLUTE AUTO 0.04 K/mm3 (0.00-0.10); IMMATURE GRAN PERCENT AUTO 1 % (0-1); LYMPHOCYTES ABSOLUTE AUTO 0.65 K/mm3 (0.84-5.20); LYMPHOCYTES PERCENT AUTO 8 % (21-46); MONOCYTES ABSOLUTE AUTO 0.61 K/mm3 (0.16-1.47); MONOCYTES PERCENT AUTO 7 % (4-13); Mean Corpuscular HGB 31.3 pg (26.0-34.0); Mean Corpuscular Volume 101 fL (80-100); Mean Platelet Volume 10.1 fL (9.1-12.4); NEUTROPHILS ABSOLUTE AUTO 6.85 K/mm3 (1.96-9.15); NEUTROPHILS PERCENT AUTO 83 % (41-73); Platelet Count 146 K/mm3 (150-400); RDW Coefficient Variation 15.1 % (11.7-14.2); RDW Standard Deviation 56.7 fL (35.1-46.3); White Blood Cell Count 8.22 K/mm3 (4.00-11.30)
[2021-12-28 04:55] LABS: Albumin, Blood 2.8 g/dL (3.4-5.0); Albumin/Globulin Ratio 1.1 (0.8-1.8); Bilirubin, Total 0.4 mg/dL (0.1-1.0); Bun/Creatinine Ratio 19.4 (12.0-20.0); Calcium, Blood 8.3 mg/dL (8.5-10.1); Creatinine, Blood 6.13 mg/dL (0.60-1.20); Globulin, Blood 2.6 g/dL (2.2-4.0); Magnesium, Blood 2.2 mg/dL (1.6-2.4); Phosphorus, Blood 7.9 mg/dL (2.5-4.9); Potassium, Blood 5.1 mmol/L (3.5-5.5); Total Protein, Blood 5.4 g/dL (6.4-8.2)
--- NOTE | 2021-12-28 06:45 | NUR ---
SHIFT SUMMARY PT ORIENTED X4 OVERNIGHT, PLEASANT, CALM AND COOPERATIVE. VSS ON RA. PAIN IN RUQ CONSISTENTLY WHEN AWAKE, PRNS GIVEN. RLQ COLOSTOMY IN PLACE, CDIFF (-) THIS AM PER LAB AND PRECAUTIONS REMOVED. FOLLWED UP WITH DR. CUETO MULTIPLE TIMES OVERNIGHT ABOUT PT LABS (SEE CRITICAL NOTES FOR DETAILS). ADEQUATE UOP. WILL CONTINUE TO MONITOR AND PASS ON TO DAY RN.
[2021-12-28 11:36] LABS: Creatinine, Blood 6.13 mg/dL (0.60-1.20); Potassium, Blood 4.8 mmol/L (3.5-5.5)
--- NOTE | 2021-12-28 16:45 | NUR ---
SHIFT SUMMARY PT REMAINS ALERT AND ORIENTED. VS STABLE. O2 SATS >90% ON RA. HR SINUS HARVEY 50'S. PT COMPLAINS OF PAIN TO ABD THROUGHOUT SHIFT AND MEDICATED PER EMAR. PT HAVING LIQUID BILIOUS OUTPUT TO COLOSTOMY. PT ABLE TO VOID USING THE URINAL. 24 HOUR URINE BEING COLLECTED AND WAS INITIATED AT 1020. SODIUM BICARB INFUSING PER ORDERS. PT REPOSITIONING HIMSELF IN BED. PER PT, APPETITE HAS IMPROVED THIS SHIFT. WILL CONTINUE TO MONITOR AND REPORT TO ONCOMING RN
--- NOTE | 2021-12-28 18:50 | NUR ---
UPDATE CBG OF 63 BEFORE DINNER. PT ABLE TO DRINK APPLE JUICE AND ALL OF HIS DINNER. ATTEMPTED TO RECHECK CBG AFTER 1 HOUR AND PT REFUSES. HE STATES THAT HE ATE HIS DINNER SO IT SHOULD BE BACK UP
[2021-12-29 04:51] LABS: Hematocrit 28.1 % (37.0-53.0); Hemoglobin 9.3 g/dL (13.5-17.5)
--- NOTE | 2021-12-29 06:08 | NUR ---
End of shift summary Overnoc with labile sugars, 80s ~2000, 20s ~0000, 150 0100, symptoms while in the 20s but he rebounded nicely, I held all insulin last night, so unsure what is driving sugars down, aware, will continue to monitor JAISON Maxwell
[2021-12-29 07:00] LABS: Albumin, Blood 2.8 g/dL (3.4-5.0); Albumin/Globulin Ratio 1.1 (0.8-1.8); Bilirubin, Direct 0.1 mg/dL (0.0-0.3); Bilirubin, Indirect 0.3 mg/dL (0.1-0.7); Bilirubin, Total 0.4 mg/dL (0.1-1.0); Calcium, Blood 7.9 mg/dL (8.5-10.1); Creatinine, Blood 5.66 mg/dL (0.60-1.20); Globulin, Blood 2.5 g/dL (2.2-4.0); Magnesium, Blood 2.1 mg/dL (1.6-2.4); Phosphorus, Blood 7.8 mg/dL (2.5-4.9); Potassium, Blood 4.2 mmol/L (3.5-5.5); Total Protein, Blood 5.3 g/dL (6.4-8.2); Uric Acid, Blood 6.2 mg/dL (3.5-7.2)
[2021-12-29 11:08] LABS: Protein, Urine Quantitative 121.5 mg/dL (0.0-11.9)
--- NOTE | 2021-12-29 16:01 | NUR ---
SHIFT SUMMARY- Pt remains A&Ox4. VSS. Afebrile. C/o generalized abd pain, Fentanyl x2 administered with adequate control of pain per pt. AUO. Ileostomy present, appliance remains C/D/I, stool/gas present. Tolerating current diet. IVF adjusted. Hypoglycemia noted overnight, MD adjusted insulin orders. No hypoglycemia noted during shift. Frequent rounds to ensure pt safety. Encouraged pt to reposition q2hrs and offload pressure points to prevent pressure ulcers, pt verbalized understanding. Pt in no apparent distress at this time. Will continue to monitor until transfer of care to oncoming RN.
--- NOTE | 2021-12-29 18:26 | NUR ---
Called to meet with pt about choosing dialysis. This designer/writer has met with this pt on previous admissions and had extensive conversations about his prognosis and quality of life. Pt open to conversation he thought he would do dialysis everyday. Review of the process and routine of a life on dialysis. pt concerned about moving and getting transport if on dialysis. Review benefits and logistics. Taked with him about trying dialysis or going to the clinic and reviewing the process with the staff and speaking with patients who are on dialysis. we then reviewed hospice advised him he will need hospice sooner than later so he does not suffer form renal failure. Advised him of the potential symptoms. Blunt discussion of pronosis and may not tolerate dialysis well with his Gastric output fluid ablance will be difficult. Encouraged him to speak with family and look at from all angles and not all or nothing. He would like to talk to the palliative team at [facility] and have a hospice consult and weigh his options. Will update caretaker grounds and physicians on his wishes.
[2021-12-30 05:53] LABS: Albumin, Blood 2.7 g/dL (3.4-5.0); Anion Gap 9 mmol/L (6-16); Blood Urea Nitrogen 100 mg/dL (8-24); Bun/Creatinine Ratio 20.2 (12.0-20.0); CO2, Blood 21 mmol/L (21-32); Calcium, Blood 7.9 mg/dL (8.5-10.1); Chloride, Blood 112 mmol/L (98-108); Creatinine, Blood 4.96 mg/dL (0.60-1.20); Glomerular Filtration Rate 11 (60-); Glucose, Blood 199 mg/dL (70-99); Phosphorus, Blood 6.3 mg/dL (2.5-4.9); Potassium, Blood 4.7 mmol/L (3.5-5.5); Sodium, Blood 142 mmol/L (136-145)
--- NOTE | 2021-12-30 05:56 | NUR ---
End of shift summary Overnight without issues, urine output good, ileostomy with adequate out, VSS, pain much better, sugars 150- 180s, room air, will monitor JAISON Maxwell
--- NOTE | 2021-12-30 12:54 | NUR ---
UPDATE: BG CHECKED PRIOR TO LUNCH PER MD ORDER, BG >300- TREATED PER SLIDING SCALE. RECHECKED BG 2HRS POST INSULIN ADMINISTRATION, BG REMAINS >300. MD NOTIFIED- INSULIN SLIDING SCALE INCREASED FROM LOW CS TO MOD CS AND ONE TIME INSULIN DOSE ORDERED. BG WILL BE RECHECKED 2 HOURS AFTER INSULIN ADMINISTRATION. WILL CONTINUE TO MONITOR.
--- NOTE | 2021-12-30 16:53 | NUR ---
SHIFT SUMMARY:Pt remains A&Ox4. VSS. Afebrile. C/o generalized abd pain- Fentanyl x2, adequate control of pain per pt. AUO. Ileostomy maintained, appliance remains C/D/I, stool/gas present. Tolerating current diet. Assessed mobility per MD request- ambulated in room/to bathroom with SBA, no significant changes noted in VS. Frequent rounds to ensure safety. Encouraged pt to reposition q2hrs and pressure points offloaded to prevent pressure ulcers, pt verbalized understanding. Pt in no apparent distress. Will continue to monitor until transfer of care to oncoming RN.
--- NOTE | 2021-12-31 00:32 | NUR ---
0015 GLUCOSE 431 -NO S/S PAGED, WILL CONTINUE TO MONITOR MARITO RN
[2021-12-31 03:57] LABS: Hemoglobin 9.9 g/dL (13.5-17.5)
[2021-12-31 04:18] LABS: Albumin, Blood 2.7 g/dL (3.4-5.0); Anion Gap 6 mmol/L (6-16); Blood Urea Nitrogen 100 mg/dL (8-24); Bun/Creatinine Ratio 21.3 (12.0-20.0); CO2, Blood 24 mmol/L (21-32); Calcium, Blood 8.1 mg/dL (8.5-10.1); Chloride, Blood 108 mmol/L (98-108); Creatinine, Blood 4.69 mg/dL (0.60-1.20); Glomerular Filtration Rate 12 (60-); Glucose, Blood 475 mg/dL (70-99); Magnesium, Blood 1.9 mg/dL (1.6-2.4); Phosphorus, Blood 5.5 mg/dL (2.5-4.9); Potassium, Blood 4.8 mmol/L (3.5-5.5); Sodium, Blood 138 mmol/L (136-145)
--- NOTE | 2021-12-31 05:31 | NUR ---
End of shift summary Overnoc without issues, he did need IV narcotics twice throughout shift for abdominal pain, sugars have been very up and down, >400s overnoc ---MD paged and one time dose long acting insulin given, HTN throughout shift but most likely from pain, last BP ~160/60, room air, afebrile, will monitor JAISON Maxwell
--- NOTE | 2021-12-31 08:27 | NUR ---
UPDATE MD notified of 07:00 BG>400. MD to place orders at this time. Will continue to monitor.
[2021-12-31 10:17] LABS: Glucose, Blood 587 mg/dL (70-99)
--- NOTE | 2021-12-31 12:56 | NUR ---
UPDATE BG>300 FOLLOWING LUNCH TIME SLIDING SCALE INSULIN ADMINISTRATION. MD NOTIFIED- NEW INSULIN ORDERS PLACED, Q2HR BG CHECKS IMPLEMENTED, PT TO BE NPO UNTIL BG DECREASES.
[2021-12-31 16:11] LABS: A/G RATIO 1.4 (0.7-1.7); ALBUMIN 2.8 g/dL (2.9-4.4); ALPHA-1-GLOBULIN 0.2 g/dL (0.0-0.4); ALPHA-2-GLOBULIN 0.7 g/dL (0.4-1.0); BETA GLOBULIN 0.6 g/dL (0.7-1.3); GAMMA GLOBULIN 0.6 g/dL (0.4-1.8); GLOBULIN, TOTAL 2.1 g/dL (2.2-3.9); IMMUNOGLOBULIN A, QN, SERUM 268 mg/dL (61-437); IMMUNOGLOBULIN G, QN, SERUM 514 mg/dL (603-1613); IMMUNOGLOBULIN M, QN, SERUM 77 mg/dL (15-143); M-SPIKE Not Observed g/dL (Not Observed); PROTEIN, TOTAL, SERUM 4.9 g/dL (6.0-8.5)
--- NOTE | 2021-12-31 18:06 | NUR ---
SHIFT SUMMARY Pt remains A&Ox4. VSS. Afebrile. C/o generalized abd pain- Fentanyl x2 administered with adequate control of pain per pt. AUO. Ileostomy maintained, appliance remains C/D/I, stool/gas present. Tolerating current diet. Pt ambulating in room/bathroom with SBA. Hyperglycemic throughout shift- see "UPDATE" nurse notes and EMAR. Frequent rounds to ensure pt safety. Encouraged frequent repositioning and pressure points offload to prevent pressure ulcers, pt verbalized understanding. Pt in no apparent distress at this time. Will continue to monitor until transfer of care to oncoming RN.
[2022-01-01 04:49] LABS: Hematocrit 30.3 % (37.0-53.0); Hemoglobin 9.6 g/dL (13.5-17.5)
--- NOTE | 2022-01-01 04:54 | NUR ---
SHIFT SUMMARY PT ALERT AND ORIENTED X4. AFEBRILE. HR SR 60'S. ON RA SATS OVER 95%. CPAP AT NIGHT. C/O LLQ 8/10 PAIN, RELIEVED PER EMAR. ILEOSTOMY BAG CHANGED. VOIDING INDEPENDTLY WITH BEDSIDE URINAL. RAMÓN PG DOES NOT DRAW. ASLEEP AT THIS TIME WITH CALL ALARM AT SIDE. WILL CONTINUE TO MONITOR UNTIL REPORT GIVEN TO DAYSHIFT RN
[2022-01-01 05:34] LABS: Albumin, Blood 2.7 g/dL (3.4-5.0); Anion Gap 9 mmol/L (6-16); Blood Urea Nitrogen 88 mg/dL (8-24); Bun/Creatinine Ratio 19.5 (12.0-20.0); CO2, Blood 23 mmol/L (21-32); Calcium, Blood 8.3 mg/dL (8.5-10.1); Chloride, Blood 109 mmol/L (98-108); Creatinine, Blood 4.51 mg/dL (0.60-1.20); Glomerular Filtration Rate 13 (60-); Glucose, Blood 199 mg/dL (70-99); Magnesium, Blood 1.7 mg/dL (1.6-2.4); Phosphorus, Blood 5.1 mg/dL (2.5-4.9); Potassium, Blood 4.6 mmol/L (3.5-5.5); Sodium, Blood 141 mmol/L (136-145)
[2022-01-01 08:11] LABS: ANTIGLOMERULAR BM AB 3 units (0-20)
--- NOTE | 2022-01-01 10:14 | NUR ---
Review with pt his medcial need and his prognosis. Physician also spoke with him about his chances of returning to hospital and his prognosis. pt has decided to go on hospice and return home. He is on [facility] review of all the agencies in town and who is available he will stay with [facility].
--- NOTE | 2022-01-01 13:18 | NUR ---
MEDICAL STATUS PT A&O X4. VSS. SPO2 > 92% ON RA. PT W/ ORDER FOR DISCHARGE HOME ON HOSPICE. PT REPORTING SON WORKING TODAY, UNABLE TO COME CARE FOR PT UNTIL TOMORROW. CALL TO MD LUIS W/ UPDATEMD W/ NEW ORDER FOR MEDICAL STATUS W/ PLAN FOR PT TO DISCHARGE HOME TOMORROW.
[2022-01-01] MEDS ORDERED: SEVEC800 PO (13:49)
[2022-01-01] MEDS ORDERED: BANATROL PLUS1 EAC1 PO (13:49)
[2022-01-01] MEDS ORDERED: LOKELMA PO (13:51)
--- NOTE | 2022-01-01 15:30 | NUR ---
TRANSFER TO MEDICAL PT CONTINUES TO BE A&O X4. VSS. REPORT GIVEN TO ACCEPTING MEDICAL FLOOR RN, AND PT TAKEN TO RM 310 BY WHEEL CHAIR W/ JUAN ALBERTOS @ APPROX 1530.
--- NOTE | 2022-01-01 19:13 | NUR ---
SHIFT SUMMARY PATIENT TRANSFER FROM PCU. A&O X4. AMBULATES TO RESTROOM INDEPENDENTLY. ILEOSTOMY PRESENT AND PATIENT MANAGING BAG. C/O ABD PAIN AFTER EATING, MEDICATED PER NOV. CBG 53, GAVE LUCIANO AND NATE JACOME, BROUGHT CBG UP TO 100. NOTIFIED AND INFORMED TO MONITOR CBG Q2H TIL MORNING. PLAN TO DISCHARGE HOME TOMORROW. REPORT GIVEN TO ONCOMING RN.
--- NOTE | 2022-01-02 04:29 | NUR ---
SHIFT SUMMARY ADMITTED FOR HYPERKALEMIA. DNR CODE. PLAN IS TO DC HOME W/HOSPICE. [facility] PT. POWERGLIDE IN LUE. CONTINUOUS PULSE OX IN PLACE. ILIOSTOMY IN RLQ. ESRD. MEDICATED FOR PAIN THIS SHIFT. USING [facility]'S CPAP FOR GINNA. A&O X4.
[2022-01-02 05:11] LABS: Hematocrit 30.6 % (37.0-53.0); Hemoglobin 9.7 g/dL (13.5-17.5)
[2022-01-02 07:19] LABS: Magnesium, Blood 1.7 mg/dL (1.6-2.4)
[2022-01-02 07:20] LABS: Albumin, Blood 2.6 g/dL (3.4-5.0); Anion Gap 8 mmol/L (6-16); Blood Urea Nitrogen 86 mg/dL (8-24); Bun/Creatinine Ratio 19.5 (12.0-20.0); CO2, Blood 22 mmol/L (21-32); Calcium, Blood 8.3 mg/dL (8.5-10.1); Chloride, Blood 112 mmol/L (98-108); Glomerular Filtration Rate 13 (60-); Glucose, Blood 60 mg/dL (70-99); Phosphorus, Blood 5.1 mg/dL (2.5-4.9); Potassium, Blood 4.3 mmol/L (3.5-5.5); Sodium, Blood 142 mmol/L (136-145)
[2022-01-02 11:11] LABS: M-SPIKE, % Not Observed % (Not Observed); PROTEIN,TOTAL,URINE 61.9 mg/dL (Not Estab.)
[2022-01-02] MEDS ORDERED: Oxycodone-Apap1 EA14 PO (11:19)
[2022-01-02 12:11] LABS: ANA DIRECT Positive (Negative); ANTI-CENTROMERE B ANTIBODIES <0.2 AI (0.0-0.9); ANTI-DNA (DS) AB QN 5 IU/mL (0-9); ANTI-JO-1 <0.2 AI (0.0-0.9); ANTICHROMATIN ANTIBODIES <0.2 AI (0.0-0.9); ANTIMYELOPEROXIDASE (MPO) ABS <9.0 U/mL (0.0-9.0); ANTIPROTEINASE 3 (PR-3) ABS <3.5 U/mL (0.0-3.5); ANTIRIBOSOMAL P ANTIBODIES <0.2 AI (0.0-0.9); ANTISCLERODERMA-70 ANTIBODIES 1.6 AI (0.0-0.9); ATYPICAL PANCA <1:20 titer (Neg:<1:20); CYTOPLASMIC (C-ANCA) <1:20 titer (Neg:<1:20); PERINUCLEAR (P-ANCA) <1:20 titer (Neg:<1:20); RNP ANTIBODIES 0.2 AI (0.0-0.9); SJOGREN'S ANTI-SS-A <0.2 AI (0.0-0.9); SJOGREN'S ANTI-SS-B <0.2 AI (0.0-0.9); SMITH ANTIBODIES <0.2 AI (0.0-0.9); SMITH/RNP ANTIBODIES <0.2 AI (0.0-0.9)
--- NOTE | 2022-01-02 12:44 | NUR ---
DISCHARGE SUMMARY PATIENT DISCHARGED HOME WITH PLANS TO GO TO HOSPICE ON WEDNESDAY. NEW MEDICATIONS REVIEWED WITH PATIENT AND PRESCRIPTIONS FAXED TO PATIENTS PREFERRED [facility] ON 01/01 BY PCU. DISCHARGE INSTRUCTIONS REVIEWED WITH PATIENT AND ALL QUESITONS ANSWERED. PERCOCET HARD SCRIPT GIVEN TO PATIENT. PATIENT'S BROTHER CALLED FOR RIDE HOME. PATIENT AND ALL BELONGINGS TAKEN TO PERSONAL VEHICLE VIA WHEELCHAIR AND
== END 2022-01-02 11:42 | DRG 683 ==
LOC: ER 16:04 → ERHOLD 19:51 → PCU 19:51 → MEDS 01-01 15:33 → ENPENDDIS 01-02 11:08 → MEDS 01-02 11:42
PROVIDERS: Emergency Medicine; Family Medicine; Internal Medicine Nephrology; Nurse Practitioner Acute Care; ADMIT Internal Medicine
DX: N17.0 Acute kidney failure with tubular necrosis (principal); E87.2 Acidosis; E87.1 Hypo-osmolality and hyponatremia; E87.5 Hyperkalemia; R10.9 Unspecified abdominal pain; Z66 Do not resuscitate; R00.1 Bradycardia, unspecified; R11.2 Nausea with vomiting, unspecified; R19.7 Diarrhea, unspecified; E88.09 Other disorders of plasma-protein metabolism, not elsewhere classified; N18.30 Chronic kidney disease, stage 3 unspecified; E11.22 Type 2 diabetes mellitus with diabetic chronic kidney disease; D63.1 Anemia in chronic kidney disease; I12.9 Hypertensive chronic kidney disease with stage 1 through stage 4 chronic kidney disease, or unspecified chronic kidney disease; M10.9 Gout, unspecified; G47.33 Obstructive sleep apnea (adult) (pediatric); F32.A Depression, unspecified; E11.51 Type 2 diabetes mellitus with diabetic peripheral angiopathy without gangrene; F41.9 Anxiety disorder, unspecified; N40.0 Benign prostatic hyperplasia without lower urinary tract symptoms; K21.9 Gastro-esophageal reflux disease without esophagitis; E78.5 Hyperlipidemia, unspecified; Z93.2 Ileostomy status; Z88.8 Allergy status to other drugs, medicaments and biological substances; Z79.4 Long term (current) use of insulin; Z79.899 Other long term (current) drug therapy; Z86.718 Personal history of other venous thrombosis and embolism; Z90.49 Acquired absence of other specified parts of digestive tract
CPT/HCPCS: 36415; 71045; 74176; 80048; 80053; 80069; 81050; 82150; 82248; 82550; 82565; 82784; 82803; 82947; 83036; 83516; 83520; 83690; 83735; 83880; 84100; 84132; 84156; 84165; 84166; 84550; 85014; 85018; 85025; 85651; 86037; 86140; 86334; 86335; 87507; 93005; 93010; 94644; 94660; 94664; 94762; 96365; 96375; 96376; 99285-25; A9270; C1751; J0610; J0881; J1170; J1644; J1815; J2405; J3010; J7030; J7060; J7070; J7799